=== PATIENT | female | born 1975 | race Caucasian/White ===

== ENCOUNTER 2018-11-25 15:33 | Emergency (ER) | payer MEDICARE, SELFPAY ==
[2018-11-25] VITALS (39 sets, daily range): BP systolic 108–143; BP diastolic 66–86; PULSE 52–90; RESP 12–20; TEMP 36.7–37; O2SAT 94–100
--- NOTE | 2018-11-25 15:59 | DI.RAD_ITS ---
SYMPTOM/DIAGNOSIS: LT SIDED CHEST PAIN PA AND LATERAL CHEST: Comparison is made with 05/29/14. Heart size and pulmonary vasculature are within normal limits. The lungs are clear. No effusions or pneumothoraces are identified. There is again seen a mild right convex scoliosis of the thoracolumbar spine. IMPRESSION: No acute pulmonary process.
--- NOTE | 2018-11-25 16:08 | ED.GENADUL_ITS ---
Discharge Plan Disposition Patient Disposition: HOME Condition: Improving Discharge Details Chief Complaint: Chest Pain Clinical Impression: Atypical chest pain, Headache, Abdominal pain Primary Care Provider: Manny Tamez ED Provider: Tiffany Martinez Home Meds and New Rx's Prescriptions: Continued lorazepam 0.5 MG tablet 0.5 mg PO BID PRN Qty: 10 RF: 0 inhalational spacing device [AeroChamber Plus Z Stat Sm Msk] 1 EACH spacer 1 ea Miscellaneous DIRECTED Qty: 1 RF: 0 cholecalciferol (vitamin D3) 1,000 UNITS tablet 1,000 unit PO DAILY RF: 0 Discharge Instructions Instructions: Chest Pain (ED), Migraine Headache (ED), Abdominal Pain (ED) Additional Instructions: Alternate Tylenol and Motrin as needed and directed for pain. Follow-up with the primary care doctor in 2 days for reevaluation. Return immediately to the emergency department with any worsening or new concerning symptoms. Discharge Data Discharge Date/Time-TO BE ENTERED AT DEPARTURE: 11/25/18 19:50 Discharge Physician: iTffany Martinez Medical Decision Making 43yo F with a history of anxiety, conversion disorder, seizures, migraine, pancreatitis, PTSD who presents with multiple complaints, mainly left-sided chest pain with radiation to left arm and back since 2 PM but also complaining of lightheadedness, nausea, left-sided headache, and left foot tingling. Also complaining of left upper quadrant abdominal pain for the last 1 to 2 weeks. Blood pressure mildly hypertensive, otherwise vitals within normal limits. Her left chest is nontender and no evidence of trauma or rash. She has reproducible pain in her left shoulder with range of motion of her left arm. She has tenderness to palpation in her epigastrium and left upper quadrant. There are no focal deficits. Denies tearing or ripping pain so doubt dissection. She has no DVT/PE risk factors and PERC negative so doubt PE. She has no family history of sudden cardiac and no cardiac risk factors so doubt ACS. Due to patient's complaint and age however, will do a cardiac work-up as well as check a lipase and give a migraine cocktail and reassess. 1705 --labs and imaging reviewed and unremarkable. Normal white blood cell count, electrolytes, lipase, troponin. Chest x-ray negative. Patient feels much better and denies any headache or chest pain at this time. Plan is for second troponin and patient is agreeable to wait for this. 0 --repeat EKG unremarkable. Second troponin negative. Patient denies any headache or chest pain at this time and is requesting to go home. Patient is instructed to call her primary care doctor on Tuesday to schedule follow-up appointment for reevaluation. She is instructed to return here at any time if worse. Medical Records Medical records reviewed: Yes I reviewed the patient's medical records. Imaging Data Radiologic Study: Radiologist's impression: XR Chest, 2 Views EXAM DATE/TIME: 11/25/2018 4:02 PM FINDINGS: Lungs: Unremarkable. No consolidation. Pleural space: Unremarkable. No pleural effusion. No pneumothorax. Heart/Mediastinum: Unremarkable. No cardiomegaly. Bones/joints: There is curvature of the thoraco-lumbar spine apex to the right. IMPRESSION: No evidence of active pulmonary disease. Lab Data Lab results reviewed: Yes I reviewed the patient's lab results. Laboratory Tests Range/Units 11/25/18 11/25/18 11/25/18 15:55 15:55 18:43 WBC (4.4-10.8) k/cumm 6.51 RBC (4.00-5.20) m/cumm 4.84 Hgb (12.0-15.5) g/dL 14.2 Hct (36.0-46.0) % 42.3 MCV (80-95) fL 87.4 MCH (27.0-33.0) pg 29.3 MCHC (32.0-36.0) g/dL 33.6 RDW (11.7-14.6) % 13.5 Plt Count (130-400) x1000/uL 300 MPV (8.0-11.0) fL 10.1 Immature Gran % 0.2 Neutrophils % 57.1 Lymphocytes % 34.7 Monocytes % 4.3 Eosinophils % 2.6 Basophils % 1.1 Absolute Neutrophils (1.2-6.7) k/cumm 3.72 Absolute Lymphocytes (1.2-3.4) k/cumm 2.26 Absolute Monocytes (0.11-0.7) k/cumm 0.28 Absolute Eosinophils (0.0-0.7) k/cumm 0.17 Absolute Basophils (0.0-0.2) k/cumm 0.07 Sodium (136-145) mmol/L 139 Potassium (3.5-5.1) mmol/L 3.7 Chloride (98-107) mmol/L 100 Carbon Dioxide (21.0-32.0) mmol/L 28.1 Anion Gap (3-11) mmol/L 10.9 BUN (7-18) mg/dL 11 Creatinine (0.55-1.02) mg/dL 0.83 Estimated GFR/1.73 m2 (mL/min/1.73m2) >= 60.00 Glucose (70-100) mg/dL 89 Calcium (8.5-10.1) mg/dL 9.9 Magnesium (1.8-2.4) mg/dL 2.1 Total Bilirubin (0.2-1.0) mg/dL 0.5 AST (15-37) U/L 20 ALT (12-78) U/L 25 Alkaline Phosphatase (46-116) U/L 91 Troponin I (0.00-0.06) ng/mL < 0.02 < 0.02 Total Protein (6.4-8.2) g/dL 9.3 H Albumin (3.4-5.0) g/dL 4.4 Lipase (73-393) U/L 203 ECG Data Attestation: I personally reviewed and interpreted this ECG (s) as follows: Interpretation: Rate of 77, sinus, occasional PVCs. No acute ST elevation or depression. T wave inversion in V2 seen in previous. QTc 430. QRS 94. repeat ekg 1844 -- rate of 61, sinus, no acute ST elevation or depression, QTc 425, QRS 94. HPI General Mode of arrival: ambulatory . Date/Time Provider Initiated Documentation: 11/25/18 15:34 . Limitations to Documentation: no limitations . Information obtained by: patient . HPI Narrative: Pt is a 43yo F with a history of conversion disorder, seizure disorder, migraine, anxiety, PTSD and pancreatitis who presents the ED with multiple complaints but with a main complaint of left-sided chest pain that started while painting at home this afternoon. Patient states she was painting when she developed a left-sided pinching pain in her left chest which radiated to her left arm and left back. She states the pain is worse with deep breathing and better with taking slow breaths. She states since the onset of chest pain she is developed nausea, left-sided headache and now tingling in her left foot. She also admits to left upper quadrant abdominal pain for the past 1 to 2 weeks. She states she has a history of pancreatitis a few years ago and states the pain feels similar. She states she is having constant dull left-sided chest pain with intermittent pinching and squeezing pain which occurs at random. She states she has a history of migraines and feels that her headache is progressing on to becoming a migraine. She states that chest pain is currently 5/10 and the headache is currently 8/10. She did not take any medication for pain. She denies any shortness of breath, vomiting, blurry vision, diarrhea, urinary symptoms, recent travel, recent surgery, leg pain or swelling. Related Data Home Medications Medication Instructions Recorded Confirmed lorazepam 0.5 mg PO BID PRN #10 tab 05/30/14 11/25/18 inhalational spacing device #1 spacer 11/23/15 04/10/16 [AeroChamber Plus Z Stat Sm Msk] cholecalciferol (vitamin D3) 1,000 unit PO DAILY 04/10/16 11/25/18 Previous Rx's Medication Instructions Recorded lorazepam 0.5 mg PO BID PRN #10 tab 05/30/14 inhalational spacing device #1 spacer 11/23/15 [AeroChamber Plus Z Stat Sm Msk] Allergies Allergy/AdvReac Type Severity Reaction Status Date / Time wheat AdvReac intolerance Unverified 11/25/18 15:44 General Stated Complaint: Chest Pain MIKI: 2 Review of Systems Review of Systems All systems reviewed & are unremarkable except as noted in HPI and below Constitutional Reports as per HPI, Denies chills and Denies fever(s) Eyes Denies blurry vision ENT Denies dizziness, Denies sore throat and Denies throat swelling Cardiovascular Denies chest pain and Denies dyspnea Respiratory Denies cough and Denies dyspnea Gastrointestinal Denies abdominal pain, Denies diarrhea and Denies vomiting Genitourinary Denies hematuria and Denies dysuria Musculoskeletal Denies back pain and Denies numbness Integumentary/Breasts Denies lesions and Denies rash Neurologic Denies dizziness, Denies focal weakness and Denies numbness Allergic/Immunologic Denies throat swelling [facility] Medical History Conversion disorder (Acute) PTSD (post-traumatic stress disorder) (Acute) Anxiety (Chronic) Migraine (Chronic) Obstructive sleep apnea (Chronic) Pancreatitis (Chronic) Seizure disorder (Chronic) Surgical History History of bilateral tubal ligation (Acute) History of placement of ear tubes (Acute) Hx of cholecystectomy (Chronic) Social History Smoking/Tobacco Use Status: Former Tobacco Use Alcohol Intake: never Drug use: Never Substance use type: does not use Do you feel safe at home: Yes Do you feel safe in your relationship?: Yes Additional Social history: quit smoking 25 years ago Exam Const General: cooperative and healthy appearing Orientation: alert and awake HENMT Head: normal to inspection Ears: hearing grossly normal bilaterally, external ears normal and TM's normal bilaterally General nose exam: external nose normal Face and sinus: normal facial exam Mouth: oral mucosae normal Teeth and gingiva: dentition normal Throat: posterior oropharynx normal Eyes General: appearance normal, both eyes and all related structures Eyelids: eyelids normal Pupils: PERRL EOM: EOM intact bilaterally Neck Neck: normal visual inspection Lymphatic: no lymphadenopathy noted Chest Chest: normal inspection of the chest, normal palpation of entire chest wall and no tenderness Resp Effort & Inspection: normal respiratory effort and able to speak in complete sentences Auscultation: clear to auscultation bilaterally Cardio Rate: regular rate Rhythm: regular rhythm GI Inspection: normal to inspection Palpation: soft, not firm, no guarding, no hepatosplenomegaly, no masses and tender in the epigastrum and in the LUQ Auscultation: normal bowel sounds Back/Spine/Pelvis Back: no CVA tenderness Skin General skin exam: no rashes or lesions noted Neuro General: alert and awake Cranial Nerves: CN's II-XI intact bilaterally Cognition: normal cognition Speech: speech normal Gait: normal gait Motor: muscle tone normal throughout and strength 5/5 throughout Sensory Exam: no sensory deficits noted Extrem General: normal to inspection, full ROM, normal capillary refill and no edema Psych Appearance: grossly normal Mental Status: mental status grossly normal Speech and Movement: speech and movement normal Affect: normal affect Thought Process: normal Course Vital Signs Temperature 98.6 F 11/25/18 15:38 Pulse 76 11/25/18 15:38 Respiratory Rate 15 11/25/18 15:38 Blood Pressure 143/86 H 11/25/18 15:38 Pulse Oximetry 99 11/25/18 15:38 Temperature 98.6 F 11/25/18 15:38 Temperature Source Skin 11/25/18 15:38 Pulse 76 11/25/18 15:38 Respiratory Rate 15 11/25/18 15:38 Blood Pressure 143/86 H 11/25/18 15:38 Pulse Oximetry 99 11/25/18 15:38 Oxygen Delivery Method Room Air 11/25/18 15:38 Oxygen Flow Rate 0 11/25/18 15:38 Pain Level 8 11/25/18 15:40
[2018-11-25] MEDS: Ketorolac 30 MG/ML VIAL IVP (16:12)
[2018-11-25 16:14] LABS: Abs Immature Grans 0.01 k/cumm (0.0-0.09); Absolute Basophil Count 0.07 k/cumm (0.0-0.2); Absolute Eosinophil Count 0.17 k/cumm (0.0-0.7); Absolute Lymphocyte Count 2.26 k/cumm (1.2-3.4); Absolute Monocyte Count 0.28 k/cumm (0.11-0.7); Absolute Neutrophil Count 3.72 k/cumm (1.2-6.7); Basophils % 1.1; Eosinophils % 2.6; HCT 42.3 % (36.0-46.0); HGB 14.2 g/dL (12.0-15.5); Immature Grans % 0.2; Lymphocytes % 34.7; Mean Corp. HGB Concentration 33.6 g/dL (32.0-36.0); Mean Corpuscular Hemoglobin 29.3 pg (27.0-33.0); Mean Corpuscular Volume 87.4 fL (80-95); Mean Platelet Volume 10.1 fL (8.0-11.0); Monocytes % 4.3; Neutrophils % 57.1; Platelet Count 300 x1000/uL (130-400); RBC 4.84 m/cumm (4.00-5.20); RBC Distribution Width 13.5 % (11.7-14.6); White Blood Cell Count 6.51 k/cumm (4.4-10.8)
[2018-11-25] MEDS: diphenhydrAMINE 50 MG/ML VIAL 25 MG IVP (16:14)
[2018-11-25] MEDS: Prochlorperazine 10 MG/2 ML VIAL IVP (16:16)
[2018-11-25] MEDS: Normal Saline 1,000 ML 1000 ML IV (16:18)
[2018-11-25] MEDS: Normal Saline Flush 10 ML SYR IVP (16:20)
[2018-11-25 16:24] LABS: ALT 25 U/L (12-78); AST 20 U/L (15-37); Albumin 4.4 g/dL (3.4-5.0); Alkaline Phosphatase 91 U/L (46-116); Anion Gap 10.9 mmol/L (3-11); BUN 11 mg/dL (7-18); Bilirubin, Total 0.5 mg/dL (0.2-1.0); CO2 28.1 mmol/L (21.0-32.0); CREATININE 0.83 mg/dL (0.55-1.02); Calcium 9.9 mg/dL (8.5-10.1); Chloride 100 mmol/L (98-107); Glucose 89 mg/dL (70-100); Lipase 203 U/L (73-393); Magnesium 2.1 mg/dL (1.8-2.4); Potassium 3.7 mmol/L (3.5-5.1); Sodium 139 mmol/L (136-145); Total Protein 9.3 g/dL (6.4-8.2); Troponin I < 0.02 ng/mL (0.00-0.06)
--- NOTE | 2018-11-25 17:03 | DI.VRAD_ITS ---
EXAM: XR Chest, 2 Views EXAM DATE/TIME: 11/25/2018 4:02 PM CLINICAL HISTORY: 43 years old, female; Chest pain; Type not specified TECHNIQUE: Imaging protocol: XR of the chest, 2 views. COMPARISON: CR ABD FLAT UPRIGHT PA CHEST 05/29/2014 2:46 AM FINDINGS: Lungs: Unremarkable. No consolidation. Pleural space: Unremarkable. No pleural effusion. No pneumothorax. Heart/Mediastinum: Unremarkable. No cardiomegaly. Bones/joints: There is curvature of the thoraco-lumbar spine apex to the right. IMPRESSION: No evidence of active pulmonary disease. Dictated and Authenticated by: Erwin Knight MD. Ordering:NUBIA Allen MD
[2018-11-25 19:07] LABS: Troponin I < 0.02 ng/mL (0.00-0.06)
== END 2018-11-25 19:50 | disposition home or self-care (01) ==
PROVIDERS: Emergency Provider Physician Assistant; PCP Family Medicine
DX: R07.89 Other chest pain (principal); R51 Headache; R10.12 Left upper quadrant pain; R42 Dizziness and giddiness; R11.0 Nausea
CPT/HCPCS: 80053; 83690; 93005; 96361; 96374; 96375; 99285; 71046; 83735; 84484; 85025; 93010; J0780; J1200; J1885

== ENCOUNTER 2019-05-09 21:13 | Observation (INO) | payer SELFPAY ==
[2019-05-09 21:28] VITALS: BP 141/75; PULSE 74; RESP 16; TEMP 36.4; O2SAT 97
[2019-05-09 22:29] LABS: Abs Immature Grans 0.02 k/cumm (0.0-0.09); Absolute Basophil Count 0.04 k/cumm (0.0-0.2); Absolute Eosinophil Count 0.11 k/cumm (0.0-0.7); Absolute Lymphocyte Count 2.12 k/cumm (1.2-3.4); Absolute Monocyte Count 0.36 k/cumm (0.11-0.7); Absolute Neutrophil Count 6.58 k/cumm (1.2-6.7); Basophils % 0.4; Eosinophils % 1.2; HCT 37.4 % (36.0-46.0); HGB 12.2 g/dL (12.0-15.5); Immature Grans % 0.2; Mean Corp. HGB Concentration 32.6 g/dL (32.0-36.0); Mean Corpuscular Hemoglobin 29.4 pg (27.0-33.0); Mean Corpuscular Volume 90.1 fL (80-95); Mean Platelet Volume 10.8 fL (8.0-11.0); Monocytes % 3.9; Neutrophils % 71.3; Platelet Count 229 x1000/uL (130-400); RBC 4.15 m/cumm (4.00-5.20); RBC Distribution Width 13.5 % (11.7-14.6); White Blood Cell Count 9.23 k/cumm (4.4-10.8)
[2019-05-09 22:51] VITALS: BP 114/69; PULSE 74; RESP 18; TEMP 36.7; O2SAT 99
[2019-05-09 22:52] LABS: ALT 15 U/L (14-59); AST 14 U/L (15-37); Alkaline Phosphatase 70 U/L (46-116); Anion Gap 10.9 mmol/L (3-11); BUN 16 mg/dL (7-18); Bilirubin, Total 0.4 mg/dL (0.2-1.0); CO2 27.1 mmol/L (21.0-32.0); CREATININE 0.93 mg/dL (0.55-1.02); Calcium 9.4 mg/dL (8.5-10.1); Chloride 104 mmol/L (98-107); Glucose 94 mg/dL (70-100); Potassium 3.5 mmol/L (3.5-5.1); Sodium 142 mmol/L (136-145); Total Protein 7.9 g/dL (6.4-8.2)
[2019-05-10 00:01] LABS: HCG Qual (Serum) Negative
--- NOTE | 2019-05-10 00:13 | W.ED.GENAD ---
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 Patient denies any other symptoms. Patient does state that she has been having significant bleeding and eating to change pads multiple times per hour. Patient denies any. Physical exam is positive for fat bleeding and clots present in the vaginal canal on exam. No obvious hemorrhaging is noted on speculum exam but continued bleeding is noted. Cervix is difficult observed due to clots. Plan to check labs given the patient states that she did come symptomatic blood loss this evening which is caused to the emergency depart Review of labs does show a decrease in patient's hemoglobin compared to normal 14 and is 12's otherwise labs are nondiagnostic. Given that patient is symptomatic I did call and speak with Dr. Buckley whom agreed to admit patient for observation further monitoring and discuss management options. Bridge orders were placed and patient was agreeable to plan of care. Patient had no significant change in symptoms and remained stable throughout emergency department stay. HPI General Mode of arrival: ambulatory. Date/Time Provider Initiated Documentation: 05/09/19 21:38. Limitations to Documentation: no limitations. Information obtained by: patient and RN notes reviewed. History of Present Illness 43 year old F presents to the emergency department with the chief complaint of Vaginal bleeding, described as severe, Quality is described as other (Denies any pain), Patient started experiencing this hour(s) (12) and it has been constant. No relieving factors improve symptom(s), No exacerbating factors reported . Patient notes no other symptoms.. Patient did receive the following treatments prior to arrival, none Related Data Home Medications Medication Instructions Recorded Confirmed lorazepam 0.5 mg PO BID PRN #10 tab 05/30/14 05/09/19 inhalational spacing device #1 spacer 11/23/15 04/10/16 [AeroChamber Plus Z Stat Sm Msk] cholecalciferol (vitamin D3) 1,000 unit PO DAILY 04/10/16 05/09/19 albuterol sulfate 2 puff INHALATION QID PRN 05/09/19 05/09/19 norethindrone acetate [Aygestin] 5 mg PO BID #30 tab 05/10/19 Previous Rx's Medication Instructions Recorded lorazepam 0.5 mg PO BID PRN #10 tab 05/30/14 inhalational spacing device #1 spacer 11/23/15 [AeroChamber Plus Z Stat Sm Msk] norethindrone acetate [Aygestin] 5 mg PO BID #30 tab 05/10/19 Allergies Allergy/AdvReac Type Severity Reaction Status Date / Time wheat AdvReac intolerance Unverified 05/09/19 22:52 General 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: 2 Review of Systems Constitutional Constitutional: Denies chills and Denies fever(s) Cardiovascular Cardiovascular: Denies rapid heart rate, Reports lightheadedness (when standing) and Denies dyspnea Respiratory Respiratory: Denies dyspnea Gastrointestinal Gastrointestinal: Denies abdominal pain and Denies nausea Genitourinary Genitourinary: Reports as per HPI, Reports abnormal vaginal bleeding, Denies dysuria, Denies pelvic pain, Denies vaginal discharge, Denies vaginal odor and Denies vaginal pruritus [facility] Social History Smoking/Tobacco Use Status: Former Tobacco Use Alcohol Intake: never Drug use: Never Substance use type: does not use Do you feel safe at home: Yes Do you feel safe in your relationship?: Yes Additional Social history: quit smoking 25 years ago Exam Const General: cooperative Orientation: alert, awake and oriented x3 Resp Effort & Inspection: normal respiratory effort and able to speak in complete sentences Auscultation: clear to auscultation bilaterally Cardio Rate: regular rate Rhythm: regular rhythm Heart Sounds: S1 normal and S2 normal GI Inspection: normal to inspection Palpation: soft, no hepatosplenomegaly, not firm, no guarding, no masses, no pulsatile masses, not rigid and nontender Auscultation: normal bowel sounds External Female Exam: external appearance normal and normal appearance of the urethra Speculum Exam - Vagina: normal appearance of the vagina, no lacerations, vaginal bleeding (Along with clots), no masses, no swelling and nontender Speculum Exam - Cervix: other (Difficult to visualize due to bleeding) OB/External & Speculum: vaginal bleeding (Along with clots) Back/Spine/Pelvis Back: no CVA tenderness Neuro General: alert, awake, oriented x3, gait normal and moves all extremities Course Vital Signs Vital signs: Vital Signs Temperature 36.4 C L 05/09/19 21:28 Pulse 74 05/09/19 21:28 Respiratory Rate 16 05/09/19 21:28 Blood Pressure 141/75 H 05/09/19 21:28 Pulse Oximetry 97 05/09/19 21:28 Temperature 36.7 C 05/09/19 22:51 Temperature Source Skin 05/09/19 22:51 Pulse 74 05/09/19 22:51 Respiratory Rate 18 05/09/19 22:51 Respiratory Effort Non-Labored 05/09/19 22:54 Blood Pressure 114/69 05/09/19 22:51 Blood Pressure Position Sitting 05/09/19 21:28 Pulse Oximetry 99 05/09/19 22:51 Oxygen Delivery Method Room Air 05/09/19 22:51 Oxygen Flow Rate 0 05/09/19 22:51 Pain Level 6 05/09/19 21:28 Comment 05/09/19 21:28 Lab/Test Results Lab/Test Results: Laboratory Tests Range/Units 05/09/19 05/09/19 05/09/19 22:15 22:15 22:15 WBC (4.4-10.8) k/cumm 9.23 RBC (4.00-5.20) m/cumm 4.15 Hgb (12.0-15.5) g/dL 12.2 Hct (36.0-46.0) % 37.4 MCV (80-95) fL 90.1 MCH (27.0-33.0) pg 29.4 MCHC (32.0-36.0) g/dL 32.6 RDW (11.7-14.6) % 13.5 Plt Count (130-400) x1000/uL 229 MPV (8.0-11.0) fL 10.8 Immature Gran % 0.2 Neutrophils % 71.3 Lymphocytes % 23.0 Monocytes % 3.9 Eosinophils % 1.2 Basophils % 0.4 Absolute Neutrophils (1.2-6.7) k/cumm 6.58 Absolute Lymphocytes (1.2-3.4) k/cumm 2.12 Absolute Monocytes (0.11-0.7) k/cumm 0.36 Absolute Eosinophils (0.0-0.7) k/cumm 0.11 Absolute Basophils (0.0-0.2) k/cumm 0.04 Sodium (136-145) mmol/L 142 Potassium (3.5-5.1) mmol/L 3.5 Chloride (98-107) mmol/L 104 Carbon Dioxide (21.0-32.0) mmol/L 27.1 Anion Gap (3-11) mmol/L 10.9 BUN (7-18) mg/dL 16 Creatinine (0.55-1.02) mg/dL 0.93 Estimated GFR/1.73 m2 (mL/min/1.73m2) >= 60.00 Glucose (70-100) mg/dL 94 Calcium (8.5-10.1) mg/dL 9.4 Total Bilirubin (0.2-1.0) mg/dL 0.4 AST (15-37) U/L 14 L ALT (14-59) U/L 15 Alkaline Phosphatase (46-116) U/L 70 Total Protein (6.4-8.2) g/dL 7.9 Albumin (3.4-5.0) g/dL 4.0 Serum HCG, Qual Patient ABO/Rh A Positive Antibody Screen Negative Range/Units 05/09/19 22:15 WBC (4.4-10.8) k/cumm RBC (4.00-5.20) m/cumm Hgb (12.0-15.5) g/dL Hct (36.0-46.0) % MCV (80-95) fL MCH (27.0-33.0) pg MCHC (32.0-36.0) g/dL RDW (11.7-14.6) % Plt Count (130-400) x1000/uL MPV (8.0-11.0) fL Immature Gran % Neutrophils % Lymphocytes % Monocytes % Eosinophils % Basophils % Absolute Neutrophils (1.2-6.7) k/cumm Absolute Lymphocytes (1.2-3.4) k/cumm Absolute Monocytes (0.11-0.7) k/cumm Absolute Eosinophils (0.0-0.7) k/cumm Absolute Basophils (0.0-0.2) k/cumm Sodium (136-145) mmol/L Potassium (3.5-5.1) mmol/L Chloride (98-107) mmol/L Carbon Dioxide (21.0-32.0) mmol/L Anion Gap (3-11) mmol/L BUN (7-18) mg/dL Creatinine (0.55-1.02) mg/dL Estimated GFR/1.73 m2 (mL/min/1.73m2) Glucose (70-100) mg/dL Calcium (8.5-10.1) mg/dL Total Bilirubin (0.2-1.0) mg/dL AST (15-37) U/L ALT (14-59) U/L Alkaline Phosphatase (46-116) U/L Total Protein (6.4-8.2) g/dL Albumin (3.4-5.0) g/dL Serum HCG, Qual Negative Patient ABO/Rh Antibody Screen
[2019-05-10 00:46] VITALS: BP 104/75; PULSE 76; RESP 16; TEMP 36.4; O2SAT 99
[2019-05-10 01:00] VITALS: BP 93/54; PULSE 69; RESP 16; TEMP 36.6
[2019-05-10] MEDS: Norethindrone 5 MG TAB 10 MG PO (01:13)
--- NOTE | 2019-05-10 01:21 | NUR.NOTE ---
Nursing Note: Patient received from ER via stretcher, alert and oriented. No bleeding at this time. Fresh pad applied. Patient cautioned to call for assist to get out of bed.
--- NOTE | 2019-05-10 03:42 | NUR.NOTE ---
PAtient is asleep.Nursing Note:
[2019-05-10 04:51] VITALS: BP 106/67; PULSE 67; RESP 18; TEMP 36.6
--- NOTE | 2019-05-10 04:52 | NUR.NOTE ---
Nursing Note: Patient up to void, stable walking. She changed the pad that she had on since 0100, very small amount of blood noted.
[2019-05-10 06:20] LABS: Bilirubin Negative (Negative); Blood Large (Negative); Clarity Cloudy (Clear); Glucose Negative (Negative); Ketones Negative (Negative); Leukocyte Esterase Small (Negative); Nitrite Negative (Negative); Specific Gravity 1.025 (1.005-1.025); Urobilinogen 0.2 EU/dL (Up TO 0.2)
[2019-05-10 06:31] LABS: RBC >50 (0-2)
[2019-05-10 06:32] LABS: C & S Indicated? Yes
--- NOTE | 2019-05-10 07:15 | W.PM.HP.N ---
Assessment and Plan Assessment and plan (1) Abnormal uterine bleeding: Status: Acute Assessment and plan: We will obtain a pelvic ultrasound this morning. Laboratory studies are pending but hemoglobin remained somewhat normal last night. The patient is not lightheaded. She has no symptoms of hypovolemia. I feel that she is suitable for discharge and we will follow her up in the clinic in the next several days. She will be discharged on Aygestin 5 mg twice daily. History of Present Illness History of Present Illness Chief Complaint: Abnormal uterine bleeding Narrative: 43-year-old presented to the emergency department last evening with complaints of heavy vaginal bleeding. The patient reports a long-standing history of heavy menses. She also reports a history of endometriosis but was diagnosed by her primary care physician after D&C. She has never had a laparoscopy. She was never managed for more than a couple of years with oral contraceptives reports that she never experienced any significant pain with her menses. She reports that she is generally healthy with the exception of conversion disorder for which she takes Lorazepam. She does report a history of seizures but states that this is related to her conversion disorder. Last Pap smear was 2014. She has no history of any abnormal Pap smears in the past. She has never had a pelvic ultrasound. The patient is planning to move to [place] this next week. Review of Systems Review of Systems ROS Unobtainable: All systems reviewed & are unremarkable except as noted in HPI and below PFSH Social History Smoking/Tobacco Use Status: Former Tobacco Use Alcohol Intake: never Drug use: Never Substance use type: does not use Do you feel safe at home: Yes Do you feel safe in your relationship?: Yes Additional Social history: quit smoking 25 years ago Meds Home Medications and Allergies Home Medications Medication Instructions Recorded Confirmed Type lorazepam 0.5 mg PO BID PRN #10 tab 05/30/14 05/09/19 Rx inhalational spacing device #1 spacer 11/23/15 04/10/16 Rx [AeroChamber Plus Z Stat [facility]] cholecalciferol (vitamin D3) 1,000 unit PO DAILY 04/10/16 05/09/19 History albuterol sulfate 2 puff INHALATION QID PRN 05/09/19 05/09/19 History Allergies Allergy/AdvReac Type Severity Reaction Status Date / Time wheat AdvReac intolerance Unverified 05/09/19 22:52 Results Labs Result diagrams: 05/09/19 22:15 05/09/19 22:15 Labs: Laboratory Results - last 24 hr 05/09/19 05/09/19 05/09/19 22:15 22:15 22:15 WBC 9.23 RBC 4.15 Hgb 12.2 Hct 37.4 MCV 90.1 MCH 29.4 MCHC 32.6 RDW 13.5 Plt Count 229 MPV 10.8 Immature Gran % 0.2 Neutrophils % 71.3 Lymphocytes % 23.0 Monocytes % 3.9 Eosinophils % 1.2 Basophils % 0.4 Absolute Neutrophils 6.58 Absolute Lymphocytes 2.12 Absolute Monocytes 0.36 Absolute Eosinophils 0.11 Absolute Basophils 0.04 Sodium 142 Potassium 3.5 Chloride 104 Carbon Dioxide 27.1 Anion Gap 10.9 BUN 16 Creatinine 0.93 Estimated GFR/1.73 m2 >= 60.00 Glucose 94 Calcium 9.4 Total Bilirubin 0.4 AST 14 L ALT 15 Alkaline Phosphatase 70 Total Protein 7.9 Albumin 4.0 Serum HCG, Qual Urine Color Urine Clarity Urine pH Ur Specific [place] Urine Protein Urine Ketones Urine Blood Urine Nitrite Urine Bilirubin Urine Urobilinogen Ur Leukocyte Esterase Urine RBC Urine WBC Ur Epithelial Cells Urine Crystals Urine Bacteria Urine Casts Urine Mucus Ur Culture Indicated? Urine Glucose Patient ABO/Rh A Positive Antibody Screen Negative 05/09/19 05/10/19 22:15 04:40 WBC RBC Hgb Hct MCV MCH MCHC RDW Plt Count MPV Immature Gran % Neutrophils % Lymphocytes % Monocytes % Eosinophils % Basophils % Absolute Neutrophils Absolute Lymphocytes Absolute Monocytes Absolute Eosinophils Absolute Basophils Sodium Potassium Chloride Carbon Dioxide Anion Gap BUN Creatinine Estimated GFR/1.73 m2 Glucose Calcium Total Bilirubin AST ALT Alkaline Phosphatase Total Protein Albumin Serum HCG, Qual Negative Urine Color Red Urine Clarity Cloudy Urine pH 6.0 Ur Specific [place] 1.025 Urine Protein 100 H Urine Ketones Negative Urine Blood Large H Urine Nitrite Negative Urine Bilirubin Negative Urine Urobilinogen 0.2 Ur Leukocyte Esterase Small H Urine RBC >50 H Urine WBC Ur Epithelial Cells Urine Crystals Urine Bacteria Urine Casts Urine Mucus Ur Culture Indicated? Yes Urine Glucose Negative Patient ABO/Rh Antibody Screen Last Vital Signs Temp 97.9 F 05/10/19 04:51 Pulse 67 05/10/19 04:51 Resp 18 05/10/19 04:51 BP 106/67 10/10/19 04:51 Pulse Ox 99 05/10/19 00:46
[2019-05-10 07:29] LABS: Abs Immature Grans 0.01 k/cumm (0.0-0.09); Absolute Basophil Count 0.07 k/cumm (0.0-0.2); Absolute Lymphocyte Count 1.82 k/cumm (1.2-3.4); Absolute Monocyte Count 0.37 k/cumm (0.11-0.7); Absolute Neutrophil Count 4.38 k/cumm (1.2-6.7); Eosinophils % 2.9; HCT 33.2 % (36.0-46.0); HGB 10.8 g/dL (12.0-15.5); Immature Grans % 0.1; Lymphocytes % 26.6; Mean Corp. HGB Concentration 32.5 g/dL (32.0-36.0); Mean Corpuscular Hemoglobin 29.3 pg (27.0-33.0); Mean Corpuscular Volume 90.2 fL (80-95); Mean Platelet Volume 11.2 fL (8.0-11.0); Monocytes % 5.4; Platelet Count 240 x1000/uL (130-400); RBC 3.68 m/cumm (4.00-5.20); RBC Distribution Width 13.6 % (11.7-14.6); White Blood Cell Count 6.85 k/cumm (4.4-10.8)
--- NOTE | 2019-05-10 08:15 | DI.US_ITS ---
EXAM: US PELVIS TRANSVAGINAL CLINICAL HISTORY: Abnormal uterine bleeding. TECHNIQUE: Ultrasound performed using standard protocol. COMPARISON: No exams were available for comparison FINDINGS: Pelvic ultrasound was performed transabdominally and transvaginally. Please see the accompanying wor ksheet for measurements of the pelvic structures. Myometrium is unremarkable in appearance. There i s heterogeneous thickened endometrial stripe at 22 millimeters. There is an 18 millimeter in diamete r simple left ovarian cyst. Otherwise the left ovary and right ovary are unremarkable in appearance. IMPRESSION: Thickened heterogeneous endometrial stripe. In the setting of a postmenopausal patient, neoplasm cou ld not be excluded and correlation with endometrial biopsy should be considered.
[2019-05-10 09:53] VITALS: BP 103/66; PULSE 73; RESP 14
== END 2019-05-10 12:45 | disposition home or self-care (01) ==
LOC: ER 05-10 00:22 → OBS 05-10 00:50
PROVIDERS: Admitting Provider Obstetrics & Gynecology; Emergency Provider Nurse Practitioner Family; PCP Family Medicine; Visit Provider Obstetrics & Gynecology
DX: N93.9 Abnormal uterine and vaginal bleeding, unspecified (principal)
CPT/HCPCS: 36415; 80053; 86850; 86900; 86901; 99223; 99285; 76830; 76856; 81003; 81015; 84703; 85025; 87086; 99284; G0378